=== PATIENT | male | born 1950 | race Caucasian/White ===

== ENCOUNTER 2016-09-27 17:16 | Inpatient (IN) | payer MEDICARE ==
[~2016-09-27] VITALS: Ht 170.2 cm; Wt 73.4 kg
[2016-09-27] MEDS ORDERED: ASPIRIN 81 MG TABLET CHEW PO ONE (18:00)
[2016-09-27] MEDS ORDERED: HYDR12.53 PO (18:13)
[2016-09-27] MEDS ORDERED: SIMV5TAB5 PO (18:13)
[2016-09-27] MEDS ORDERED: LEVO50TA5 PO (18:13)
[2016-09-27] MEDS ORDERED: ASPI-496 PO (18:13)
[2016-09-27] MEDS ORDERED: ATOR80TA75 PO (18:20)
[2016-09-27] MEDS ORDERED: LOSA1TAB16 PO (18:20)
[2016-09-27] MEDS ORDERED: ASPIRIN 81 MG TABLET CHEW ONE (18:22)
[2016-09-27 18:29] LABS: HEMOGLOBIN 12.8 g/dL (13.7-18.0)
[2016-09-27 18:43] LABS: BLOOD UREA NITROGEN 18 mg/dL (7-18)
[2016-09-27 18:48] LABS: IS PT STATUS REG ER OR PRE ER? YES
[2016-09-27] MEDS ORDERED: MORPHINE SULFATE 4 MG/ML, 1ML ONE (19:33)
[2016-09-27] MEDS ORDERED: morphine SULFATE 10 MG/ML, 1ML IVPush ONE (20:00)
[2016-09-27 21:21] VITALS: BP 154/89
[2016-09-27] MEDS ORDERED: HYDROcodone/APAP 5/325 TABLET PO ONE (22:30)
[2016-09-27] MEDS ORDERED: NITROGLYCERIN 0.4 MG/SPRAY SL PRN (23:30)
[2016-09-27] MEDS ORDERED: MAGNESIUM SULFATE PMX 2GM/50ML 50 ML IV ONE (23:30)
[2016-09-27] MEDS ORDERED: NITROGLYCERIN 0.4 MG BOTTLE (25 TABS) SL PRN (23:30)
[2016-09-28] MEDS ORDERED: SODIUM CHLORIDE 0.9% 1,000 ML IV SCH (00:04)
[2016-09-28] MEDS ORDERED: ENOXAPARIN 40 MG/0.4 ML SQ SCH (00:30)
[2016-09-28] MEDS ORDERED: BISACODYL 10 MG SUPP PR PRN (00:30)
[2016-09-28] MEDS ORDERED: ACETAMINOPHEN 325 MG TABLET PO PRN (00:30)
[2016-09-28] MEDS ORDERED: GABAPENTIN 300 MG CAPSULE PO SCH (00:30)
[2016-09-28] MEDS ORDERED: CEFTRIAXONE PMX 1GM/50ML 50 ML IV SCH (00:30)
[2016-09-28] MEDS ORDERED: DOCUSATE 100 MG CAPSULE PO PRN (00:30)
[2016-09-28 01:24] LABS: IS PT STATUS REG ER OR PRE ER? YES
[2016-09-28] MEDS: MORPHINE SULFATE 4 MG/ML, 1ML IVPush PRN ×3 (01:25→13:44)
[2016-09-28 02:11] LABS: DAU SCREEN DISCLAIMER
[2016-09-28 05:18] VITALS: BP 121/78
[2016-09-28] MEDS ORDERED: ASPIRIN 325 MG TABLET EC PO SCH (06:00)
[2016-09-28 06:07] LABS: ASPARTATE AMINO TRANSFERASE 20 U/L (15-37); BLOOD UREA NITROGEN 12 mg/dL (7-18)
[2016-09-28 06:18] LABS: HEMOGLOBIN 12.2 g/dL (13.7-18.0)
[2016-09-28 06:55] LABS: IS PT STATUS REG ER OR PRE ER? NO
[2016-09-28 07:11] VITALS: BP 144/83
[2016-09-28] MEDS ORDERED: LEVOTHYROXINE 50 MCG TABLET PO SCH (09:00)
[2016-09-28] MEDS ORDERED: LOSARTAN 50MG TABLET PO SCH (09:00)
[2016-09-28] MEDS ORDERED: HYDROCHLOROTHIAZIDE 12.5 MG CAPSULE PO SCH (09:00)
[2016-09-28] MEDS ORDERED: morphine SULFATE 10 MG/ML, 1ML ONE (13:40)
[2016-09-28] MEDS ORDERED: GABA300C10 PO (14:52)
[2016-09-28] MEDS ORDERED: DOXY100T PO (14:52)
[2016-09-28] MEDS ORDERED: CEFD300C2 PO (14:52)
[2016-09-28] MEDS ORDERED: ATORVASTATIN 40 MG TABLET PO SCH (21:00)
== END 2016-09-28 17:31 | disposition home or self-care (01) | DRG 73 ==
LOC: ED 19:36 → EDIP 19:37 → ED 20:27 → 5SO 21:17
PROVIDERS: ADMIT Internal Medicine; ATTEND Internal Medicine
DX: M54.12 Radiculopathy, cervical region (principal); J18.9 Pneumonia, unspecified organism; E03.9 Hypothyroidism, unspecified; E78.5 Hyperlipidemia, unspecified; G89.29 Other chronic pain; I10 Essential (primary) hypertension; L98.9 Disorder of the skin and subcutaneous tissue, unspecified
CPT/HCPCS: 36415; 71010; 80048; 80053; 80307; 81003; 82040; 82533; 83735; 84100; 84145; 84439; 84443; 84484; 85025; 87040; 93005; 96374; J0696; J1650; J2270; J3475; J7030

== ENCOUNTER → 2016-10-21 | Outpatient (CLI) | payer MEDICARE ==
[~2016-10-21] MED LIST: ASPI-496 PO; ATOR80TA75 PO; CEFD300C2 PO; DOXY100T PO; GABA300C10 PO; HYDR12.53 PO; LEVO50TA5 PO; LOSA1TAB16 PO; OMNIPAQUE 350 MG/ML, 75ML BOTTLE ONE; SIMV5TAB5 PO
== END | disposition home or self-care (01) ==
LOC: CFH 13:04
PROVIDERS: ATTEND Nurse Practitioner Primary Care
DX: J84.10 Pulmonary fibrosis, unspecified (principal); J47.9 Bronchiectasis, uncomplicated
CPT/HCPCS: 71260; Q9967